=== PATIENT | female | born 1935 | race African-American/Black ===

== ENCOUNTER 2017-06-20 16:41 | Inpatient (IN) | payer MEDICARE, MEDICAID ==
[~2017-06-20] VITALS: Ht 152.4 cm; Wt 58.2 kg
[~2017-06-20 16:41] MED LIST: DILT240C3 PO; LOSA100T14 PO; SIMV20TA6 PO; VIT D3 PO
[2017-06-20 17:57] LABS: BASOPHILS % 0.6 % (0.0-2.0); EOSINOPHILS % 1.7 % (0.0-5.0); HEMATOCRIT. 36.6 % (36.0-48.0); HEMOGLOBIN. 12.2 g/dL (12.0-16.0); LYMPHOCYTES % 10.2 % (20.0-50.0); MEAN CORPUSCULAR HEMOGLOBIN 29.2 pg (28.0-32.0); MEAN CORPUSCULAR VOLUME 87.8 fL (81.0-99.0); MEAN PLATELET VOLUME 7.9 fl (7.4-10.4); MONOCYTES % 10.6 % (2.0-8.0); NEUTROPHILS % 76.9 % (40.0-76.0); PLATELET 175 x1000/uL (130-400); RED BLOOD CELL COUNT 4.17 mill/uL (4.2-5.4); RED CELL DISTRIBUTION WIDTH 13.5 % (11.6-14.6)
[2017-06-20 17:58] LABS: INR 1.2
[2017-06-20 18:06] LABS: CARBON DIOXIDE 29 mEq/L (21-32); CHLORIDE 109 mEq/L (98-107)
[2017-06-20] MEDS ORDERED: MORPHINE SULFATE 4 MG/ML CPJ (NOT FOR IM USE) IV ONE ×2 (19:15→19:45)
[2017-06-20] MEDS ORDERED: SODIUM CHLORIDE 0.9% 1,000 ML IV SCH (19:41)
[2017-06-20 21:55] VITALS: BP 148/69
[2017-06-20] MEDS ORDERED: ASPI-1159 PO (23:29)
[2017-06-20] MEDS ORDERED: SITA50TA3 PO (23:29)
[2017-06-20] MEDS ORDERED: HYDR-4133 PO (23:29)
[2017-06-20] MEDS ORDERED: TRAM50TA3 PO (23:29)
[2017-06-20] MEDS ORDERED: LOVA10TA54 PO (23:29)
[2017-06-20] MEDS ORDERED: HYDRALAZINE HCL 10MG TABLET PO PRN (23:30)
[2017-06-21] VITALS: BP 118/63
[2017-06-21] MEDS ORDERED: GUAIFENESIN 200MG/10ML SUGAR FREE UDC PO PRN
[2017-06-21] MEDS ORDERED: MAGNESIUM/ALUMINUM HYDROXIDE/SIMETHICONE 30ML UDC PO PRN
[2017-06-21] MEDS ORDERED: LORAZEPAM 0.5MG TABLET PO PRN
[2017-06-21] MEDS ORDERED: IPRATROPIUM/ALBUTEROL 0.5-3(2.5)MG/3ML NEB INH PRN
[2017-06-21] MEDS ORDERED: ACETAMINOPHEN 325MG TABLET PO PRN
[2017-06-21] MEDS ORDERED: ENOXAPARIN 40MG/0.4ML SYR SUBCUT SCH
[2017-06-21] MEDS ORDERED: ONDANSETRON HCL 4MG/2ML VIAL IV PRN
[2017-06-21 04:00] VITALS: BP 136/59
[2017-06-21] MEDS: TRAMADOL 50MG TABLET PO PRN ×3 (05:32→16:51)
[2017-06-21] MEDS: SODIUM CHLORIDE 0.9% INJ 3ML FLUSH IVF SCH ×3 (05:32→23:46)
[2017-06-21] MEDS ORDERED: AZOPT BOTHEYE (05:42)
[2017-06-21] MEDS ORDERED: BIMA2.5D4 EACHEYE (05:42)
[2017-06-21 06:35] LABS: BASOPHILS % 0.4 % (0.0-2.0); EOSINOPHILS % 2.9 % (0.0-5.0); HEMATOCRIT. 32.8 % (36.0-48.0); HEMOGLOBIN. 10.9 g/dL (12.0-16.0); LYMPHOCYTES % 13.5 % (20.0-50.0); MEAN CORPUSCULAR VOLUME 87.6 fL (81.0-99.0); MEAN PLATELET VOLUME 8.2 fl (7.4-10.4); MONOCYTES % 12.7 % (2.0-8.0); NEUTROPHILS % 70.5 % (40.0-76.0); PLATELET 158 x1000/uL (130-400); RED BLOOD CELL COUNT 3.74 mill/uL (4.2-5.4); RED CELL DISTRIBUTION WIDTH 13.4 % (11.6-14.6)
[2017-06-21 07:49] LABS: CHLORIDE 110 mEq/L (98-107)
[2017-06-21 08:00] VITALS: BP 129/70
[2017-06-21 08:01] LABS: CARBON DIOXIDE 23 mEq/L (21-32); CREATINE KINASE 67 IU/L (26-192); PHOSPHORUS 3.3 mg/dL (2.5-4.9); TROPONIN I < 0.02 ng/mL (0.00-0.04)
[2017-06-21] MEDS ORDERED: PANTOPRAZOLE SODIUM 40 MG/VIAL IV SCH (09:00)
[2017-06-21] MEDS ORDERED: MEDICATION NOT ON FORMULARY EA (Brinzolamide (Azopt) 1 ML) BOTHEYE SCH (09:00)
[2017-06-21] MEDS: DEXT 5%/0.45% NACL 1000ML 1,000 ML IV SCH ×2 (09:56→16:51)
[2017-06-21] MEDS: DORZOLAMIDE 2% OPHTH 10 ML BOTTLE EACHEYE SCH ×3 (09:56→16:50)
[2017-06-21] MEDS: FAMOTIDINE 20MG/2ML VIAL IV SCH (09:56)
[2017-06-21] MEDS: LINAGLIPTIN 5MG TABLET PO SCH (09:57)
[2017-06-21] MEDS: ASPIRIN 81MG EC TABLET PO SCH (09:57)
[2017-06-21] MEDS: ENOXAPARIN 30MG/0.3ML SYR SUBCUT SCH (09:57)
[2017-06-21] MEDS: DILTIAZEM HCL 240MG ER (24HR) PO SCH (09:57)
[2017-06-21 11:47] VITALS: BP 140/70
[2017-06-21 15:46] VITALS: BP 144/70
[2017-06-21 16:33] LABS: VITAMIN B12 SERUM 829 pg/mL (211-911)
[2017-06-21] MEDS: DOCUSATE SODIUM 100MG CAPSULE PO PRN (16:50)
[2017-06-21] MEDS ORDERED: MEDICATION NOT ON FORMULARY EA (Bimatoprost (Lumigan) 1 DROP) EACHEYE SCH (17:00)
[2017-06-21 20:00] VITALS: BP 129/57
[2017-06-21] MEDS: ATORVASTATIN CALCIUM 10MG TABLET PO SCH (21:14)
[2017-06-21] MEDS: LATANOPROST 0.005% OPHTH DROPS 2.5ML EACHEYE SCH (21:15)
[2017-06-22] VITALS: BP 130/60
[2017-06-22] MEDS: TRAMADOL 50MG TABLET PO PRN ×4 (01:22→21:42)
[2017-06-22] MEDS: DEXT 5%/0.45% NACL 1000ML 1,000 ML IV SCH ×2 (01:28→13:50)
[2017-06-22 04:00] VITALS: BP 133/64
[2017-06-22] MEDS: SODIUM CHLORIDE 0.9% INJ 3ML FLUSH IVF SCH ×3 (06:30→23:09)
[2017-06-22 07:05] LABS: BASOPHILS % 0.6 % (0.0-2.0); EOSINOPHILS % 4.2 % (0.0-5.0); HEMATOCRIT. 32.5 % (36.0-48.0); HEMOGLOBIN. 10.9 g/dL (12.0-16.0); MEAN CORPUSCULAR HEMOGLOBIN 29.4 pg (28.0-32.0); MEAN CORPUSCULAR VOLUME 87.7 fL (81.0-99.0); MEAN PLATELET VOLUME 8.2 fl (7.4-10.4); MONOCYTES % 10.8 % (2.0-8.0); NEUTROPHILS % 71.4 % (40.0-76.0); PLATELET 159 x1000/uL (130-400); RED BLOOD CELL COUNT 3.71 mill/uL (4.2-5.4); RED CELL DISTRIBUTION WIDTH 13.1 % (11.6-14.6)
[2017-06-22 08:00] VITALS: BP 135/71
[2017-06-22] MEDS: DORZOLAMIDE 2% OPHTH 10 ML BOTTLE EACHEYE SCH ×3 (09:09→16:39)
[2017-06-22] MEDS: DILTIAZEM HCL 240MG ER (24HR) PO SCH (09:12)
[2017-06-22] MEDS: ENOXAPARIN 30MG/0.3ML SYR SUBCUT SCH (09:12)
[2017-06-22] MEDS: DOCUSATE SODIUM 100MG CAPSULE PO PRN ×2 (09:13→21:41)
[2017-06-22] MEDS: LINAGLIPTIN 5MG TABLET PO SCH (09:13)
[2017-06-22] MEDS: ASPIRIN 81MG EC TABLET PO SCH (09:14)
[2017-06-22] MEDS: FAMOTIDINE 20MG/2ML VIAL IV SCH (09:14)
[2017-06-22 11:48] VITALS: BP 124/61
[2017-06-22 15:43] VITALS: BP_SYST 140; BP_SYST 145; BP_DIAS 67; BP_DIAS 99
[2017-06-22 21:28] VITALS: BP 148/71
[2017-06-22] MEDS: ATORVASTATIN CALCIUM 10MG TABLET PO SCH (21:40)
[2017-06-22] MEDS: LATANOPROST 0.005% OPHTH DROPS 2.5ML EACHEYE SCH (23:10)
[2017-06-23 01:17] VITALS: BP 143/65
[2017-06-23] MEDS: DEXT 5%/0.45% NACL 1000ML 1,000 ML IV SCH (03:08)
[2017-06-23 05:00] VITALS: BP 130/60
[2017-06-23 05:56] LABS: BASOPHILS % 0.6 % (0.0-2.0); EOSINOPHILS % 3.8 % (0.0-5.0); HEMOGLOBIN. 11.2 g/dL (12.0-16.0); LYMPHOCYTES % 11.7 % (20.0-50.0); MEAN CORPUSCULAR HEMOGLOBIN 28.8 pg (28.0-32.0); MEAN CORPUSCULAR VOLUME 87.2 fL (81.0-99.0); MEAN PLATELET VOLUME 8.2 fl (7.4-10.4); MONOCYTES % 9.9 % (2.0-8.0); PLATELET 165 x1000/uL (130-400)
[2017-06-23] MEDS: SODIUM CHLORIDE 0.9% INJ 3ML FLUSH IVF SCH ×3 (06:07→22:45)
[2017-06-23 07:16] LABS: CARBON DIOXIDE 28 mEq/L (21-32); CHLORIDE 105 mEq/L (98-107)
[2017-06-23 08:00] VITALS: BP 147/68
[2017-06-23] MEDS: DILTIAZEM HCL 240MG ER (24HR) PO SCH (08:48)
[2017-06-23] MEDS: LINAGLIPTIN 5MG TABLET PO SCH (08:48)
[2017-06-23] MEDS: ENOXAPARIN 30MG/0.3ML SYR SUBCUT SCH (08:48)
[2017-06-23] MEDS: FAMOTIDINE 20MG/2ML VIAL IV SCH (08:48)
[2017-06-23] MEDS: DORZOLAMIDE 2% OPHTH 10 ML BOTTLE EACHEYE SCH ×3 (08:48→17:20)
[2017-06-23] MEDS: ASPIRIN 81MG EC TABLET PO SCH (08:48)
[2017-06-23 11:58] VITALS: BP 148/70
[2017-06-23 16:00] VITALS: BP 120/51
[2017-06-23 20:00] VITALS: BP 138/82
[2017-06-23] MEDS: ATORVASTATIN CALCIUM 10MG TABLET PO SCH (22:41)
[2017-06-23] MEDS: LATANOPROST 0.005% OPHTH DROPS 2.5ML EACHEYE SCH (22:43)
[2017-06-23] MEDS: TRAMADOL 50MG TABLET PO PRN (22:52)
[2017-06-24 00:03] VITALS: BP 132/62
[2017-06-24 05:03] VITALS: BP 147/65
[2017-06-24] MEDS: SODIUM CHLORIDE 0.9% INJ 3ML FLUSH IVF SCH ×3 (06:29→23:17)
[2017-06-24] MEDS ORDERED: OMEPRAZOLE 20MG CAPSULE EXTENDED RELEASE PO SCH (07:20)
[2017-06-24 07:54] VITALS: BP 146/71
[2017-06-24] MEDS: DILTIAZEM HCL 240MG ER (24HR) PO SCH (08:31)
[2017-06-24] MEDS: DORZOLAMIDE 2% OPHTH 10 ML BOTTLE EACHEYE SCH ×3 (08:31→16:15)
[2017-06-24] MEDS: FAMOTIDINE 20MG/2ML VIAL IV SCH (08:31)
[2017-06-24] MEDS: TRAMADOL 50MG TABLET PO PRN (08:31)
[2017-06-24] MEDS: ENOXAPARIN 40MG/0.4ML SYR SUBCUT SCH (08:32)
[2017-06-24] MEDS: ASPIRIN 81MG EC TABLET PO SCH (08:32)
[2017-06-24] MEDS: LINAGLIPTIN 5MG TABLET PO SCH (08:32)
[2017-06-24 08:36] LABS: BASOPHILS % 0.4 % (0.0-2.0); EOSINOPHILS % 4.5 % (0.0-5.0); HEMATOCRIT. 34.3 % (36.0-48.0); HEMOGLOBIN. 11.4 g/dL (12.0-16.0); LYMPHOCYTES % 16.2 % (20.0-50.0); MEAN CORPUSCULAR VOLUME 86.8 fL (81.0-99.0); MEAN PLATELET VOLUME 8.2 fl (7.4-10.4); MONOCYTES % 12.2 % (2.0-8.0); NEUTROPHILS % 66.7 % (40.0-76.0); PLATELET 177 x1000/uL (130-400); RED BLOOD CELL COUNT 3.95 mill/uL (4.2-5.4)
[2017-06-24 11:55] VITALS: BP 145/70
[2017-06-24 15:21] VITALS: BP 129/62
[2017-06-24 20:24] VITALS: BP 137/68
[2017-06-24] MEDS: LATANOPROST 0.005% OPHTH DROPS 2.5ML EACHEYE SCH (23:15)
[2017-06-24] MEDS: ATORVASTATIN CALCIUM 10MG TABLET PO SCH (23:16)
[2017-06-25 00:24] VITALS: BP 133/59
[2017-06-25 04:50] VITALS: BP 148/67
[2017-06-25 06:38] LABS: BASOPHILS % 0.6 % (0.0-2.0); EOSINOPHILS % 4.2 % (0.0-5.0); HEMATOCRIT. 34.3 % (36.0-48.0); HEMOGLOBIN. 11.6 g/dL (12.0-16.0); LYMPHOCYTES % 19.1 % (20.0-50.0); MEAN CORPUSCULAR HEMOGLOBIN 29.3 pg (28.0-32.0); MEAN CORPUSCULAR VOLUME 86.6 fL (81.0-99.0); MONOCYTES % 12.7 % (2.0-8.0); NEUTROPHILS % 63.4 % (40.0-76.0); PLATELET 182 x1000/uL (130-400); RED BLOOD CELL COUNT 3.97 mill/uL (4.2-5.4); RED CELL DISTRIBUTION WIDTH 12.9 % (11.6-14.6)
[2017-06-25 08:01] VITALS: BP 142/68
[2017-06-25] MEDS: DILTIAZEM HCL 240MG ER (24HR) PO SCH (08:58)
[2017-06-25] MEDS: ASPIRIN 81MG EC TABLET PO SCH (08:58)
[2017-06-25] MEDS: LINAGLIPTIN 5MG TABLET PO SCH (08:59)
[2017-06-25] MEDS: FAMOTIDINE 20MG/2ML VIAL IV SCH (09:00)
[2017-06-25] MEDS: TRAMADOL 50MG TABLET PO PRN (09:00)
[2017-06-25] MEDS: DORZOLAMIDE 2% OPHTH 10 ML BOTTLE EACHEYE SCH ×2 (09:00→12:57)
[2017-06-25] MEDS: ENOXAPARIN 40MG/0.4ML SYR SUBCUT SCH (09:01)
[2017-06-25 11:52] VITALS: BP 170/70
[2017-06-25 13:43] VITALS: BP 137/67
[2017-06-25] MEDS: SODIUM CHLORIDE 0.9% INJ 3ML FLUSH IVF SCH (15:20)
== END 2017-06-25 16:30 | DRG 536 ==
LOC: ER 18:18 → 6WST 19:46 → ENRESERV 20:26
PROVIDERS: ADMIT Family Medicine Adult Medicine; ATTEND Family Medicine Adult Medicine
DX: S32.591A Other specified fracture of right pubis, initial encounter for closed fracture (principal); E46 Unspecified protein-calorie malnutrition; E11.22 Type 2 diabetes mellitus with diabetic chronic kidney disease; I13.0 Hypertensive heart and chronic kidney disease with heart failure and stage 1 through stage 4 chronic kidney disease, or unspecified chronic kidney disease; I50.32 Chronic diastolic (congestive) heart failure; I48.0 Paroxysmal atrial fibrillation; J44.9 Chronic obstructive pulmonary disease, unspecified; M48.56XA Collapsed vertebra, not elsewhere classified, lumbar region, initial encounter for fracture; E78.5 Hyperlipidemia, unspecified; E87.6 Hypokalemia; D64.9 Anemia, unspecified; W01.0XXA Fall on same level from slipping, tripping and stumbling without subsequent striking against object, initial encounter; E78.00 Pure hypercholesterolemia, unspecified; H40.9 Unspecified glaucoma; H54.42 Blindness, left eye, normal vision right eye; I25.10 Atherosclerotic heart disease of native coronary artery without angina pectoris; M17.9 Osteoarthritis of knee, unspecified; M48.06 Spinal stenosis, lumbar region; M75.00 Adhesive capsulitis of unspecified shoulder; M81.0 Age-related osteoporosis without current pathological fracture; N18.9 Chronic kidney disease, unspecified; R29.6 Repeated falls; R32 Unspecified urinary incontinence; Z96.652 Presence of left artificial knee joint; F45.8 Other somatoform disorders; Z86.73 Personal history of transient ischemic attack (TIA), and cerebral infarction without residual deficits; Y93.89 Activity, other specified; Y92.89 Other specified places as the place of occurrence of the external cause; Y99.8 Other external cause status; Z88.6 Allergy status to analgesic agent; Z88.8 Allergy status to other drugs, medicaments and biological substances
CPT/HCPCS: 36415; 70450; 72131; 72148; 72192; 73610; 73700; 80048; 80053; 82550; 82607; 82962; 83036; 83735; 83880; 84100; 84484; 85025; 85610; 93005; 93306; 93970; 96361; 96374; 97116; 97162; 97167; 97530; 99285; C1893; J1650; J2270; J3490; J7030; J7042

== ENCOUNTER 2017-12-09 18:49 | Emergency (ER) | payer MEDICARE, MEDICAID ==
[~2017-12-09] VITALS: Ht 162.6 cm; Wt 51.0 kg
[~2017-12-09 18:49] MED LIST changes: +ASPI-1159 PO; +AZOPT BOTHEYE; +BIMA2.5D4 EACHEYE; +HYDR-4133 PO; +LOVA10TA54 PO; +SITA50TA3 PO; +TRAM50TA3 PO
[2017-12-09] MEDS ORDERED: KETOROLAC 30MG/ML VIAL IV STA (22:05)
[2017-12-09 22:47] LABS: BASOPHILS % 0.6 % (0.0-2.0); EOSINOPHILS % 0.9 % (0.0-5.0); HEMATOCRIT. 37.7 % (36.0-48.0); HEMOGLOBIN. 12.4 g/dL (12.0-16.0); LYMPHOCYTES % 11.3 % (20.0-50.0); MEAN CORPUSCULAR HEMOGLOBIN 28.8 pg (28.0-32.0); MEAN CORPUSCULAR VOLUME 87.6 fL (81.0-99.0); MONOCYTES % 9.2 % (2.0-8.0); PLATELET 200 x1000/uL (130-400); RED CELL DISTRIBUTION WIDTH 13.7 % (11.6-14.6)
[2017-12-09 22:51] LABS: CLARITY URINE CLEAR (CLEAR); COLOR URINE YELLOW (YELLOW); KETONES URINE 1+ (NEGATIVE); LEUKOCYTE ESTERASE URINE 1+ (NEGATIVE); NITRITE URINE NEGATIVE (NEGATIVE); OCCULT BLOOD URINE TRACE (NEGATIVE); PH URINE 7.5 (4.5-8.0); PROTEIN URINE TRACE (NEGATIVE); SPECIFIC GRAVITY URINE 1.013 (1.005-1.030); UROBILINOGEN URINE 0.2 E.U./dL (0.2-1.0)
[2017-12-09 22:53] LABS: CHLORIDE 106 mEq/L (98-107); INR 1.2; PARTIAL THROMBOPLASTIN TIME 27.5 sec (23.4-31.0); PROTHROMBIN TIME 12.6 sec (9.4-11.6)
[2017-12-09 23:02] LABS: TROPONIN I < 0.02 ng/mL (0.00-0.04)
[2017-12-10 08:58] VITALS: BP 171/95
== END 2017-12-10 09:28 | disposition home or self-care (01) ==
LOC: ER 19:23
DX: M25.551 Pain in right hip (principal); M25.552 Pain in left hip; I13.0 Hypertensive heart and chronic kidney disease with heart failure and stage 1 through stage 4 chronic kidney disease, or unspecified chronic kidney disease; N18.9 Chronic kidney disease, unspecified; I50.9 Heart failure, unspecified; J44.9 Chronic obstructive pulmonary disease, unspecified; M19.90 Unspecified osteoarthritis, unspecified site; Z88.6 Allergy status to analgesic agent; Z79.82 Long term (current) use of aspirin; W18.30XA Fall on same level, unspecified, initial encounter; Y93.89 Activity, other specified; Y92.002 Bathroom of unspecified non-institutional (private) residence as the place of occurrence of the external cause; Y99.8 Other external cause status
CPT/HCPCS: 36415; 71045; 72192; 73080; 73522; 73700; 80053; 81003; 84484; 85025; 85610; 85730; 93005; 96374; 99285; J1885

== ENCOUNTER 2022-07-29 17:32 | Emergency (ER) | payer MEDICARE, MEDICAID ==
[~2022-07-29] VITALS: Ht 149.9 cm; Wt 41.0 kg
[~2022-07-29 17:32] MED LIST changes: -ASPI-1159 PO; +ASPI-1497 PO; -DILT240C3 PO; +DILT240C94 PO; +FOSAMAX PO; -LOSA100T14 PO; +LOSA100T32 PO; +PATADAY PO; +SIMV-43 PO; -SIMV20TA6 PO
[2022-07-29] MEDS ORDERED: ACETAMINOPHEN 325MG TABLET PO ONE (18:15)
[2022-07-29 22:50] VITALS: BP 134/56
== END 2022-07-29 22:59 | disposition home or self-care (01) ==
LOC: ER 17:58
DX: S43.491A Other sprain of right shoulder joint, initial encounter (principal); E11.22 Type 2 diabetes mellitus with diabetic chronic kidney disease; I13.0 Hypertensive heart and chronic kidney disease with heart failure and stage 1 through stage 4 chronic kidney disease, or unspecified chronic kidney disease; N18.9 Chronic kidney disease, unspecified; I50.9 Heart failure, unspecified; J44.9 Chronic obstructive pulmonary disease, unspecified; Z88.6 Allergy status to analgesic agent; J45.909 Unspecified asthma, uncomplicated; M19.90 Unspecified osteoarthritis, unspecified site; Z86.73 Personal history of transient ischemic attack (TIA), and cerebral infarction without residual deficits; W06.XXXA Fall from bed, initial encounter; Y93.89 Activity, other specified; Y92.013 Bedroom of single-family (private) house as the place of occurrence of the external cause
CPT/HCPCS: 71045; 72170; 73030; 99284